=== PATIENT | female | born 1975 | race Two or more races ===

== ENCOUNTER 2019-01-23 05:56 | Emergency (ER) | payer SELFPAY ==
[~2019-01-23] VITALS: Ht 154.9 cm; Wt 59.0 kg
--- NOTE | 2019-01-23 06:00 | NUR ---
PT SIIGNED A WAIVER FOR TO PROCEED W/ THE CT AND CURRENTLY ON HER MENSTRUAL PERIOD.
--- NOTE | 2019-01-23 06:04 | NUR ---
BIB FAMILY FOR C/O R ABD PAIN RADIATING TO THE BACK, +N/V. PT CURRENTLY ON HER MENSTRUAL PERIOD. REPORTED LBM: 3 DAYS AGO. - DIARRHEA , + RETENTION/ DRIBBING.
[2019-01-23] MEDS ORDERED: ONDANSETRON HCL/PF 4 MG/2 ML VIAL ONE ×2 (06:21→08:13)
[2019-01-23] MEDS ORDERED: MORPHINE SULFATE INJ 4 MG/ML DISP.SYRIN ONE (06:21)
[2019-01-23] MEDS: IV NS 0.9% 1,000 ML BAG IV ONE (06:28)
[2019-01-23] MEDS: MORPHINE SULFATE INJ 2 MG/ML DISP.SYRIN IV ONE ×2 (06:28→08:21)
[2019-01-23] MEDS: ONDANSETRON HCL/PF 4 MG/2 ML VIAL IVP ONE (06:28)
[2019-01-23 06:30] LABS: BASOPHILS % (AUTO) 0.3 % (0.0-2.0); EOSINOPHILS % (AUTO) 0.5 % (0.0-6.0); HEMATOCRIT 33 % (33-45); HEMOGLOBIN 10.7 g/dL (11.5-14.8); LYMPHOCYTES # (AUTO) 0.6 /CMM (0.8-4.8); LYMPHOCYTES % (AUTO) 5.3 % (20.0-44.0); MEAN CORPUSCULAR HGB CONC 33 g/dl (31.0-36.0); MEAN CORPUSCULAR VOLUME 90 fL (82-100); MONOCYTES # (AUTO) 1.8 /CMM (0.1-1.30); MONOCYTES % (AUTO) 15.4 % (2.0-12.0); NEUTROPHILS % (AUTO) 78.5 % (43.0-81.0); PLATELET COUNT (AUTO) 285 /CMM (150-450); RED BLOOD CELL COUNT(AUTO) 3.66 MIL/uL (4.0-5.2); WHITE BLOOD COUNT (AUTO) 11.4 K/uL (4.3-11.0)
[2019-01-23 06:45] LABS: ALANINE AMINOTRANSFERASE 29 U/L (12-78); ALBUMIN 2.5 g/dL (3.4-5.0); ALKALINE PHOSPHATASE 160 U/L (46-116); ASPARTATE AMINOTRANSFERASE 36 U/L (15-37); BILIRUBIN,DIRECT 0.4 mg/dL (0.0-0.2); BILIRUBIN,TOTAL 0.6 mg/dL (0.2-1.0); CALCIUM, SERUM 8.5 mg/dL (8.5-10.1); CARBON DIOXIDE 20 mmol/L (21-32); CHLORIDE 97 mmol/L (98-107); CREATININE 1.5 mg/dL (0.6-1.3); GLUCOSE 109 mg/dL (74-106); LIPASE 62 U/L (73-393); SODIUM SERUM 134 mmol/L (136-145); TOTAL PROTEIN, SERUM 7.1 g/dL (6.4-8.2); UREA NITROGEN, BLOOD 18 mg/dL (7-18)
[2019-01-23 06:48] LABS: POTASSIUM 2.4 mmol/L (3.5-5.1)
--- NOTE | 2019-01-23 06:59 | NUR ---
STRAIGHT CATH DONE W/ 20ML OF CLEAR YELLOW URINE OUTPUT. SAMPLE SENT TO THE LAB.
[2019-01-23 07:11] LABS: BAND % (MANUAL) 3 % (0.0-5.0); LYMPHOCYTES % (MANUAL) 7 % (16-48); MONOCYTES % (MANUAL) 10 % (0-11.0); NEUTROPHILS % (MANUAL) 80 (42-76)
[2019-01-23 07:17] LABS: APPEARANCE,URINE SL CLOUDY (CLEAR); BILIRUBIN,URINE 1+ (NEGATIVE); BLOOD, URINE TRACE-INTA Ery/uL (NEGATIVE); COLOR,URINE YELLOW (YELLOW); KETONES,URINE TRACE (NEGATIVE); LEUKOCYTE ESTERASE ,URINE TRACE (NEGATIVE); NITRITE, URINE NEGATIVE (NEGATIVE); PH,URINE 5.5 (5.0-8.0); PROTEIN,URINE 2+ mg/dl (NEGATIVE); UGLUCOSE NEGATIVE (NEGATIVE)
[2019-01-23] MEDS ORDERED: KETOROLAC TROMETHAMINE INJ 30 MG/ML VIAL ONE (07:25)
[2019-01-23] MEDS ORDERED: POTASSIUM CHLORIDE 20 MEQ TAB.PRT.SR PO ONE (07:25)
--- NOTE | 2019-01-23 07:30 | NUR ---
RECEIVED ENDORSEMENT FROM [facility]OE[facility].
[2019-01-23 07:35] LABS: RBC,URINE 0-2 /HPF (0-2)
[2019-01-23 07:36] LABS: BACTERIA,URINE Few /HPF (None Seen)
[2019-01-23] MEDS ORDERED: SULFAMETH/TRIMETH 800/160 MG 1 UDTAB TABLET ONE (07:36)
[2019-01-23] MEDS: POTASSIUM CHLORIDE 20 MEQ TAB.PRT.SR PO ONE (07:37)
[2019-01-23] MEDS: KETOROLAC TROMETHAMINE INJ 30 MG/ML VIAL IV ONE (07:37)
[2019-01-23] MEDS: SULFAMETH/TRIMETH 800/160 MG 1 UDTAB TABLET PO ONE (08:09)
[2019-01-23] MEDS ORDERED: MORPHINE SULFATE INJ 2 MG/ML DISP.SYRIN ONE (08:13)
[2019-01-23] MEDS: ONDANSETRON HCL/PF 4 MG/2 ML VIAL IV ONE (08:20)
--- NOTE | 2019-01-23 08:21 | NUR ---
IV removed. Catheter intact and site benign. Pressure and 4x4 applied to site. No bleeding noted.Patient discharged to home in stable condition. Written and verbal after care instructions given. Patient verbalizes understanding of instruction.
[2019-01-23 08:28] VITALS: BP 116/84
== END 2019-01-23 08:29 | disposition home or self-care (01) ==
LOC: ER 06:02
DX: N12 Tubulo-interstitial nephritis, not specified as acute or chronic (principal); E87.6 Hypokalemia; Z88.1 Allergy status to other antibiotic agents
CPT/HCPCS: 36415; 74176; 80048; 80076; 81001; 83690; 84484; 84702; 85025; 87086; 96374; 96375; 96376; 99284; J1885; J2270 ×2; J2405 ×2; J7030; 81000-TC